=== PATIENT | female | born 1935 | race Caucasian/White ===

== ENCOUNTER 2017-03-26 10:04 | Emergency (ER) | payer OTHER, BC ==
[~2017-03-26] VITALS: Ht 154.9 cm; Wt 73.2 kg
[2017-03-26] MEDS ORDERED: PERCOCET 5/31 TABLET PO (13:50)
[2017-03-26 13:57] VITALS: BP 180/72
== END 2017-03-26 13:58 | disposition home or self-care (01) ==
LOC: EME 10:04
DX: S00.03XA Contusion of scalp, initial encounter (principal); W18.2XXA Fall in (into) shower or empty bathtub, initial encounter; Y93.E1 Activity, personal bathing and showering; E78.5 Hyperlipidemia, unspecified; M54.32 Sciatica, left side
CPT/HCPCS: 70450; 72125; 99281; 99283